=== PATIENT | male | born 1945 ===

== ENCOUNTER 2025-01-08 00:33 | Day surgery (SDC) | payer MEDICARE, SELFPAY ==
[2024-11-23 10:16] VITALS: BMI 27.1
--- NOTE | 2024-12-28 14:03 | PC.NURSE ---
Spoke with patient in regards to rescheduled procedure. Updated patient with new date and times, and answered all questions about prep. Patient denies any changes to allergies, medications, and health history. No questions at this time.
--- OUTSIDE RECORDS SUMMARY | 2025-01-08 00:39 | XMS_ITS | Referral Summary ---
Author Organization [facility] [address] Address [address] [place] [address] Care Team Providers Care Mold Sander Name Role Phone Alan Shine MD Primary Care Provider [phone] Encounters Date Type Department Care Team Description 12/28/2024 11:00 AM CDT Clinical Support [facility] [address] [place] [address] [place] [address] Type 2 diabetes mellitus without complication, with long-term current use of insulin (HCC) 12/21/2024 Telephone [id number] [facility] [place] [address] Juana Valera, RN 12/20/2024 Results Follow-Up [facility] [place] [address] Alan Shine MD 12/18/2024 3:30 PM BILL COLLECTOR Lab [facility] [place] [address] Type 2 diabetes mellitus without complication, with long-term current use of insulin (HCC); Primary hypertension; Mixed hyperlipidemia 12/18/2024 12:00 PM BILL COLLECTOR Office Visit [facility] [address] [facility] [address] [place] [address] Alan Shine MD Type 2 diabetes mellitus without complication, with long-term current use of insulin (HCC) (Primary Dx); Primary hypertension; Mixed hyperlipidemia from Last 3 Months Allergies Active Allergy Reactions Criticality Noted Date Comments Meperidine Other (See comments),Nausea only High 09/2022 unknown Medications aspirin 81 mg tablet Take 1 tablet (81 mg total) by mouth daily Active amitriptyline (ELAVIL) 25 mg tablet TAKE 1 TABLET (25 MG TOTAL) BY MOUTH NIGHTLY 30 tablet Active meclizine (ANTIVERT) 12.5 mg tablet Take 1 tablet (12.5 mg total) by mouth 3 (three) times a day as needed for dizziness 30 tablet Active Additional Information Patient not taking.Reported on 12/18/2024 insulin glargine (TOUJEO MAX) 300 unit/mL (3 mL) pen for injectionIndicati ons:Type 2 diabetes mellitus without complication, with long-term current use of insulin ([facility]) INJECT 28 UNITS DAILY DIRECTED 12 mL 2 Active Additional Information Patient taking differently: INJECT 32 UNITS DAILY DIRECTED, Reported on 12/18/[address] (VOLTAREN) 75 mg EC tablet Take 1 tablet (75 mg total) by mouth 2 (two) times a day Active fluorouraciL (EFUDEX) 5 % cream APPLY THIN LAYER TO FOREHEAD AREA TWICE DAILY X3-4 WEEKS (RED SCABBY REACTION WILL OCCUR) Active tretinoin (RETIN-A) 0.1 % cream APPLY THIN LAYER TO FACE AT BEDTIME Active ezetimibe (ZETIA) 10 mg tabletIndications :Mixed hyperlipidemia Take 1 tablet by mouth once daily 90 tablet 3 Active Jardiance 25 mg tablet Take 1 tablet by mouth once daily 90 tablet 3 Active hyoscyamine ER (LEVBID) 0.375 mg 12 hr tablet TAKE ONE TABLET BY MOUTH UP TO TWICE A DAY NEEDED 60 tablet 3 Active spironolactone (ALDACTONE) 25 mg tablet TAKE 1 TABLET (25 MG TOTAL) BY MOUTH DAILY 90 tablet 3 2024 Active blood glucose diagnostic (Contour Next Test Strips) strip USE ONE STRIP TO TEST BLOOD TWICE DAILY 200 strip 2 Active blood-glucose meter (Contour Meter) misc Use to test blood sugar twice a day E11.9 1 each Active lancets ([place] 1 Lancets) 26 gauge misc Use 2 times each day when testing blood glucose Dx: E11.9 200 each 3 Active carvediloL (COREG) 12.5 mg tablet TAKE 1 TABLET (12.5 MG TOTAL) BY MOUTH TWO (2) (TWO) TIMES A DAY WITH MEALS 60 tablet 11 Active valsartan (DIOVAN) 320 mg tablet TAKE ONE TABLET BY MOUTH DAILY 90 tablet Active amLODIPine (NORVASC) 5 mg tablet TAKE 1 TABLET (5 MG TOTAL) BY MOUTH DAILY [address] (PROTONIX) 40 mg EC tablet TAKE 1 TABLET (40 MG TOTAL) BY MOUTH DAILY 90 tablet Active montelukast (SINGULAIR) 10 mg tablet TAKE 1 TABLET (10 MG TOTAL) BY MOUTH NIGHTLY 90 tablet Active venlafaxine XR (EFFEXOR-XR) 75 mg 24 hr capsule TAKE 1 CAPSULE (75 MG TOTAL) BY MOUTH DAILY 90 capsule Active glipiZIDE XL (GLUCOTROL XL) 5 mg 24 hr tablet TAKE 1 TABLET (5 MG TOTAL) BY MOUTH DAILY 90 tablet Active tazarotene (TAZORAC) 0.05 % gel Apply topically nightly 30 g 024 2024 Active TechLITE Pen Needle 32 gauge x 532 needle USE TO INJECT INSULIN ONE TIMES PER DAY. 100 each 3 Active pen needle, diabetic (TechLITE Pen Needle) 32 gauge x 5/32 needle USE TO INJECT INSULIN 1 TIMES PER DAY. 100 each 024 2024 Discontinued Active Problems Problem Noted Date Diagnosed Date Diverticulitis 01/30/2024 Assessment & Plan (01/30/2024 12:58 PM CDT): Continue current rx. 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 Hypertension 05/05/2013 Overview (01/18/2017): Hypertension Assessment & Plan (09/17/2024 1:43 PM BILL COLLECTOR): Patient doing reasonably well continue present Rx Assessment & Plan (03/17/2024 10:21 AM CDT): Bp at target Assessment & Plan (01/30/2024 12:57 PM CDT): BP at target continue medications Hyperlipidemia 05/05/2013 Overview (01/18/2017): Hyperlipidemia Assessment & Plan (09/17/2024 1:43 PM BILL COLLECTOR): Stable doing well Assessment & Plan (03/17/2024 10:22 AM CDT): Lipid doing well Assessment & Plan (01/30/2024 12:57 PM CDT): Doing well continue present Rx. Immunizations Immunization Administration Dates Next Due Influenza, Quadrivalent, Spl it, Preservative Free, Intramuscular 10/04/2015 Influenza, Trivalent, High D ose, Split, Preservative Free, Intramuscular 10/30/2012 Pneumococcal Conjugate PCV 13 06/08/2016 Pneumococcal Conjugate Pcv20 03/15/2023 Tetanus toxoid, adsorbed 05/07/2013 ZOSTER Recombinant 03/15/2023 Social History Tobacco Use Types Packs/Day Years Used Date Smoking Tobacco: Former Smokeless Tobacco: Never Tobacco Cessation:Counseling Given: Not Answered Alcohol Use Standard Drinks/Week Comments Yes 0 (1 standard drink = 0.6 oz pur e alcohol) Sex and Gender Information Value Date Recorded Sex Assigned at Not on file Legal Sex Male 11:49 AM BILL COLLECTOR Gender Identity Male 09/10/2021 2:45 PM BILL COLLECTOR Sexual Orientation Straight 09/10/2021 2: 45 PM BILL COLLECTOR Last Filed Vital Signs Vital Sign Reading Time Taken Comments Blood Pressure 149/79 12/28/2024 11:18 AM CDT Pulse 80 12/28/2024 11:18 AM CDT Temperature 36.6 C (97.8 F) 01/30/2024 12:30 PM CDT Respiratory Rate 17 12/29/2020 2:50 PM CDT Oxygen Saturation 95% 12/29/2020 2:50 PM CDT Inhaled Oxygen Concentration - - Weight 93.9 kg (207 lb) 12/28/2024 11:18 AM CDT Height 182.9 cm (6') 12/28/2024 11:18 AM CDT Body Mass Index 28.07 12/28/2024 11:18 AM CDT Plan of Treatment Not on file Procedures Procedure Name Priority Date/Time Associated Diagnosis Comments EGFR Routine 12/18/2024 1:18 PM BILL COLLECTOR Type 2 diabetes mellitus without complication, with long-term current use of insulin (HCC) Primary hypertension Mixed hyperlipidemia DIFFERENTIAL AUTO Routine 12/18/2024 1:1 8 PM BILL COLLECTOR Type 2 diabetes mellitus without complication, with long-term current use of insulin (HCC) Primary hypertension Mixed hyperlipidemia COMPREHENSIVE METABOLIC PANEL Routine 12/18/2024 1:18 PM BILL COLLECTOR Type 2 diabetes mellitus without complication, with long-term current use of insulin (HCC) Primary hypertension Mixed hyperlipidemia TSH Routine 12/18/2024 1:18 PM BILL COLLECTOR Type 2 diabetes mellitus without complication, with long-term current use of insulin (HCC) Primary hypertension Mixed hyperlipidemia ALBUMIN CREATININE RATIO, URINE Routine 12/18/2024 1:18 PM BILL COLLECTOR Type 2 diabetes mellitus without complication, with long-term current use of insulin (HCC) Primary hypertension Mixed hyperlipidemia CBC WITH AUTO DIFFERENTIAL Routine 12/18/2024 1:18 PM BILL COLLECTOR Type 2 diabetes mellitus without complication, with long-term current use of insulin (HCC) Primary hypertension Mixed hyperlipidemia POCT HEMOGLOBIN A1C Routine 12/18/2024 1 2:50 PM BILL COLLECTOR Type 2 diabetes mellitus without complication, with long-term current use of insulin (HCC) POCT LIPID PANEL Routine 06/03/2024 11:4 7 AM CDT Mixed hyperlipidemia HEPATITIS PANEL, ACUTE Routine 03/20/2024 9:11 AM CDT Elevated liver enzymes STOOL DNA COLOGUARD Routine 05/06/2023 7:00 AM CDT Mixed hyperlipidemia Primary hypertension Type 2 diabetes mellitus without complication, with long-term current use of insulin (HCC) DIABETES EYE EXAM Routine 07/17/2019 DIABETES FOOT EXAM Routine 10/03/2017 from Last 3 Months or Most Recently Relevant to Health Maintenance Results * eGFR (12/18/2024 1:18 PM BILL COLLECTOR) eGFR >90 >=60 mL/min/1. 73 m2 Comment: Interpretive Data Reference Interval Normal >/= 90 mL/min/1.73m2 Mildly decreased* 60 - 89 mL/min/1.73m2 Mildly to moderately decreased 45 - 59 mL/min/1.73m2 Moderately to severely decreased 30 - 44 mL/min/1.73m2 Severely decreased 15 - 29 mL/min/1.73m2 Kidney Failure < 15 mL/min/1.73m2 *Relative to young adult level Estimated glomerular filtration rate is determined by the 2020 CKD-EPI equation recommended by the National Kidney Foundation (A Unifying Approach to GFR Estimation: Recommendations of the NKF-ASK Task Force on Reassessing the Inclusion of Race in Diagnosing Kidney Disease, JASN 2020). The CKD-EPI equation should not be used for patients with unstable renal function and has not been validated in children and those over 70. Current interpretive data was last reviewed 2021. Blood 12/18/2024 1:18 PM BILL COLLECTOR 12/18/2024 1:55 PM BILL COLLECTOR us Alan Shine MD LAB BLOOD ORDERABLES Final Re sult [facility] Department [place] [address] * (ABNORMAL) Differential, auto (12/18/2024 1:18 PM BILL COLLECTOR) Neutrophil abs 5.1 1.5 - 6.5 K/cumm Imm gran abs 0.0 0.0 - 0.1 K/cumm [facility] Lymphocyte abs 1.7 0.8 - 3.3 K/cumm [facility] Monocyte abs 0.9(H) 0.2 - 0.8 K/cumm [facility] Eosinophil abs 0.1 0.0 - 0.5 K/cumm [facility] Basophil abs 0.0 0.0 - 0.1 K/cumm [facility] Neutrophil pct 65.4 % [facility] Comment: Interpretive Data Percent cell count reference ranges are not reported, since discordance with absolute values may lead to misinterpretation of CBC data. Current Interpretive Data was last revised on 2018. Imm gran pct 0.4 % [facility] Comment: Interpretive Data Percent cell count reference ranges are not reported, since discordance with absolute values may lead to misinterpretation of CBC data. Current Interpretive Data was last revised on 2018. Lymphocyte pct 21.5 % [facility] Comment: Interpretive Data Percent cell count reference ranges are not reported, since discordance with absolute values may lead to misinterpretation of CBC data. Current Interpretive Data was last revised on 2018. Monocyte pct 10.9 % [facility] Comment: Interpretive Data Percent cell count reference ranges are not reported, since discordance with absolute values may lead to misinterpretation of CBC data. Current Interpretive Data was last revised on 2018. Eosinophil pct 1.3 % [facility] Comment: Interpretive Data Percent cell count reference ranges are not reported, since discordance with absolute values may lead to misinterpretation of CBC data. Current Interpretive Data was last revised on 2018. Basophil pct 0.5 % [facility] Comment: Interpretive Data Percent cell count reference ranges are not reported, since discordance with absolute values may lead to misinterpretation of CBC data. Current Interpretive Data was last revised on 2018. Blood 12/18/2024 1:18 PM BILL COLLECTOR 12/18/2024 1:55 PM BILL COLLECTOR us Alan Shine MD LAB BLOOD ORDERABLES Final Re sult [facility] Department [place] [address] * CBC with auto differential (12/18/2024 1:18 PM BILL COLLECTOR) WBC 7.8 3.8 - 9.9 K/cumm Hgb 16.4 13.0 - 17.5 g/dL [facility] Hct 47.3 38.9 - 50.3 % [facility] Plt 230 150 - 400 K/cumm [facility] MPV 9.9 9.1 - 12.3 fL [facility] RBC 5.26 4.30 - 5.80 M/cumm [facility] MCV 89.9 81.3 - 96.4 fL [facility] MCH 31.2 27.1 - 33.3 pg [facility] MCHC 34.7 32.3 - 35.7 g/dL [facility] RDW CV 13.3 11.1 - 14.9 % [facility] RDW SD 43.8 35.7 - 48.1 fL [facility] NRBC abs 0.00 0.00 - 0.01 K/cumm [facility] Blood 12/18/2024 1:18 PM BILL COLLECTOR 12/18/2024 1:55 PM BILL COLLECTOR Alan Shine MD LAB BLOOD ORDERABLES Final Re sult Performing Organization Address [facility] Co de Phone Number [facility] [place] [address] * (ABNORMAL) Albumin Creatinine Ratio, Urine (12/18/2024 1:18 PM BILL COLLECTOR) Albumin Ur 114.3 mg/L Comment: Interpretive Data No reference range established. Current interpretive data was last revised 2019. Creatinine Ur 53.6 mg/dL [facility] Comment: Interpretive Data No reference range established. Current interpretive data was last revised 2019. Albumin Creatinine Ratio, Ur 213(H) 1 - 29 mg/g [facility] Urine 12/18/2024 1:18 PM BILL COLLECTOR 12/18/2024 1:55 PM BILL COLLECTOR us Alan Shine MD LAB URINE ORDERABLES Final Re sult Performing Organization Address [facility] Co de Phone Number [facility] Department [place] [address] * TSH (12/18/2024 1:18 PM BILL COLLECTOR) Thyroid Stimulating Hormone 1.20 0.30 - 4.20 mcIUnit/mL Blood 12/18/2024 1:18 PM BILL COLLECTOR 12/18/2024 1:55 PM BILL COLLECTOR us Alan Shine MD LAB BLOOD ORDERABLES Final Re sult Performing Organization Address [facility] Co de Phone Number [facility] [place] [address] * (ABNORMAL) Comprehensive metabolic panel (12/18/2024 1:18 PM BILL COLLECTOR) Pathologist [facility] Sodium 139 135 - 145 mmol/L Potassium, pl 4.4 3.3 - 4.9 mmol/L [facility] Chloride 100 97 - 110 mmol/L [facility] CO2 26 22 - 32 mmol/L [facility] Anion gap 13 2 - 15 mmol/L [facility] BUN 26(H) 6 - 25 mg/dL [facility] Creatinine 0.71(L) 0.80 - 1.30 mg/dL [facility] Glucose 153 70 - 199 mg/dL [facility] Comment: Interpretive Data Fasting glucose >/= 126 mg/dl is diagnostic for diabetes. Fasting is defined as no caloric intake for at least 8 hours. Fasting glucose between 100 mg/dl to 125 mg/dl is diagnostic of prediabetes. In a patient with classic symptoms of hyperglycemia or hyperglycemic crisis, a random glucose >/= 200 mg/dl is diagnostic for diabetes. In the absence of unequivocal hyperglycemia, results should be confirmed by repeat testing. The classification and Diagnosis of Diabetes Diabetes Care 2021; 46: S19-S40. Current interpretive data was last revised 2022. Calcium 10.0 8.5 - 10.3 mg/dL [facility] Bilirubin, total 1.0 0.1 - 1.2 mg/dL [facility] Protein, pl 7.8 6.5 - 8.5 g/dL [facility] Albumin 4.7 3.5 - 5.0 g/dL [facility] Alk phos 62 40 - 130 Units/L [facility] ALT 14 7 - 55 Units/L [facility] AST 25 10 - 50 Units/L [facility] Blood 12/18/2024 1:18 PM BILL COLLECTOR 12/18/2024 1:55 PM BILL COLLECTOR us Alan Shine MD LAB BLOOD ORDERABLES Final Re sult [facility] Department [place] [address] * (ABNORMAL) POCT hemoglobin A1c (12/18/2024 12:50 PM BILL COLLECTOR) Pathologist [facility] Hemoglobin A1C, POC 9.1 4.0 - 5.6 % Capillary blood 12/18/2024 1 2:50 PM BILL COLLECTOR us Alan Shine MD POINT OF CARE TEST ORDERABLES Final Result * (ABNORMAL) POCT lipid panel (06/03/2024 11:47 AM CDT) Pathologist [facility] Cholesterol, POC 196 mg/dL HDL, POC <15 mg/dL Triglycerides, POC 290 mg/dL Capillary blood 06/03/2024 1 1:47 AM CDT us Alan Shine MD POINT OF CARE TEST ORDERABLES Final Result * Hepatitis panel, acute Blood (03/20/2024 9:11 AM CDT) Pathologist [facility] Hep A IgM NON-REACTI VE NON-REACT LANCE [facility] Comment: For additional information, please refer to http://Fonemesh/faq/GMM499 (This link is being provided for informational/ educational purposes only.) HepBsAg NON-REACTI VE NON-REACT LANCE [facility] Comment: For additional information, please refer to http://Fonemesh/faq/CQN000 (This link is being provided for informational/ educational purposes only.) Hep B core IgM NON-REACTI VE NON-REACT LANCE [facility] Comment: For additional information, please refer to http://Fonemesh/faq/PZN239 (This link is being provided for informational/ educational purposes only.) Hep C Ab NON-REACTI VE NON-REACT LANCE [facility] Comment: HCV antibody was non-reactive. There is no laboratory evidence of HCV infection. In most cases, no further action is required. However, if recent HCV exposure is suspected, a test for HCV RNA (test code 81241) is suggested. For additional information please refer to http://Fonemesh/faq/BWL92l5 (This link is being provided for informational/ educational purposes only.) Blood 03/20/2024 9:11 AM CDT 03/20/2024 9:12 AM CDT Narrative [facility] - 03/21/2024 9:37 PM CDT FASTING:NO FASTING: NO Alan Shine MD LAB MICROBIOLOGY - GENERAL OR DERABLES Final Result [facility] [address] [place] [address] * Stool DNA - Cologuard (05/06/2023 7:00 AM CDT) Stool DNA - Cologuard Negative Negative [facility] (CLIA #:[id number]) Comment: NEGATIVE TEST RESULT. A negative Cologuard result indicates a low likelihood that a colorectal cancer (CRC) or advanced adenoma (adenomatous polyps with more advanced pre-malignant features) is present. The chance that a person with a negative Cologuard test has a colorectal cancer is less than 1 in 1500 (negative predictive value >99.9%) or has an advanced adenoma is less than 5.3% (negative predictive value 94.7%). These data are based on a prospective cross-sectional study of 10,000 individuals at average risk for colorectal cancer who were screened with both Cologuard and colonoscopy. (Natalie Pineda et al, N Engl J Med 2014;370(14):8620-7285) The normal value (reference range) for this assay is negative. COLOGUARD RE-SCREENING RECOMMENDATION: Periodic colorectal cancer screening is an important part of preventive healthcare for asymptomatic individuals at average risk for colorectal cancer. Following a negative Cologuard result, the [place] Cancer Society and U.S. Multi-Society Task Force screening guidelines recommend a Cologuard re-screening interval of 3 years. References: [place] [employer] Society Guideline for Colorectal Cancer Screening: https://www.cancer.org/cancer/eitfu-urluqp-nyamom/qgvpdebxq-rfumvwyti-imykqzl/ac s-rec ommendations.html.; Angel DK, iTtus CR, Abelardo GARVEY, Colorectal Cancer Screening: Recommendations for Physicians and Patients from the U.S. Multi-Society Task Force on Colorectal Cancer Screening , Am J Gastroenterology 2017; 112:0781-2586. TEST DESCRIPTION: Composite algorithmic analysis of stool DNA-biomarkers with hemoglobin immunoassay. Quantitative values of individual biomarkers are not reportable and are not associated with individual biomarker result reference ranges. Cologuard is intended for colorectal cancer screening of adults of either sex, 45 years or older, who are at average-risk for colorectal cancer (CRC). Cologuard has been approved for use by the U.S. FDA. The performance of Cologuard was established in a cross sectional study of average-risk adults aged 50-84. Cologuard performance in patients ages 45 to 49 years was estimated by sub-group analysis of near-age groups. Colonoscopies performed for a positive result may find as the most clinically significant lesion: colorectal cancer [4.0%], advanced adenoma (including sessile serrated polyps greater than or equal to 1cm diameter) [20%] or non- advanced adenoma [31%]; or no colorectal neoplasia [45%]. These estimates are derived from a prospective cross-sectional screening study of 10,000 individuals at average risk for colorectal cancer who were screened with both Cologuard and colonoscopy. (Natalie Jefferson. et al, N Engl J Med 2014;370(14):5459-5918.) Cologuard may produce a false negative or false positive result (no colorectal cancer or precancerous polyp present at colonoscopy follow up). A negative Cologuard test result does not guarantee the absence of CRC or advanced adenoma (pre-cancer). The current Cologuard screening interval is every 3 years. ([place] [employer] Society and U.S. Multi-Society Task Force). Cologuard performance data in a 10,000 patient pivotal study using colonoscopy as the reference method can be accessed at the following location: [email or web address].Code Blue/results. Additional description of the Cologuard test process, warnings and precautions can be found at [email or web address].[email or web address]. Stool 05/06/2023 7:00 AM CDT 05/07/2023 8:44 PM CDT us Alan Shine MD LAB BODY FLUIDS AND STOOLS OR DERABLES Final Result [facility] (CLIA #:[id number]) [address] [place] [address] * DIABETES EYE EXAM (07/17/2019) Diabetic Eye Exam Normal Nicole Rodríguez MD HEALTH MAINTENANCE Final Resul t * DIABETES FOOT EXAM (10/03/2017) Diabetic Foot Exam Unknown Historical Provider HEALTH MAINTENANCE Final Result from Last 3 Months or Most Recently Relevant to Health Maintenance [place] [address] [facility] MEDIC[facility] MEDICARE [employer] MEDICARE SUPPLEMENT MEDICARE MEDICARE [facility] MEDICARE SUPPLEMENT Care Teams Mold Sander Relationship Specialty Start Date End Date Alan Shine MD [id number] [address] PCP - General Internal Medicine 07/12/20
--- OUTSIDE RECORDS SUMMARY | 2025-01-08 00:39 | XMS_ITS ---
Author Organization [facility] Address [address] [place] [address] Care Team Providers Care Warehouse Engineer Name Role Phone Cain Palumbo Unavailable [phone] REASON FOR VISIT [facility], on tirzepatide, struggling with appetite suppression , Taking probiotics, metamucil, and benefiber, Desired weight loss: 20 lbs, -3.2 lbs since the start last visit and -4.8 lbs since start medical weight loss regimen, No history MTC or MEN2 or pancreatitis, Concerned about future DM and OA Medications Medication SIG (Take, Route, Frequency, Duration) Notes Start Date End Date Status TOUJEO MAX SOLOSTAR 300 units/mL for 60 Days Active DICLOFENAC sodium 75 mg 1 tab(s) orally 2 times a day Active GLIPIZIDE 5 mg 1 tab(s) orally once a day Active EZETIMIBE 10 mg TAKE 1 TABLET BY NISA TH ONCE DAILY for 60 Days Active CARVEDILOL 12.5 mg for 30 Days Active JARDIANCE 25 mg for 90 Days Ac tive Encounters Encounter Location Date Provider Diagnosis [facility] [place] ([address]) [address] [id number] 02/27/2024 Cain Palumbo Morbid (severe) obesity due to excess calories E66.01 ; Abdominal distension (gaseous) R14.0 ; Chronic fatigue, unspecified R53.82 ; Other fatigue R53.83 and Other malaise R53.81 Assessments Encounter Date Diagnosis (ICD Code) Assessment Notes Treatment Notes Treatment Clinical Notes Section Notes 02/27/2024 Morbid (severe) obesity due to excess calories (ICD-10 - E66.01) 02/27/2024 Abdominal distension (gaseous) (ICD-10 - R14.0) Restart medical grade probiotics and take fiber as prescribed previously. To GI today to discuss new symptoms and advice on treatment if diverticulitis has recurred...always happens when I get stressed and I'm upset about my brother. 02/27/2024 Chronic fatigue, unspecified (ICD-10 - R53.82) 02/27/2024 Other fatigue (ICD-10 - R53.83) 02/27/2024 Other malaise (ICD-10 - R53.81) Plan Of Treatment Treatment Notes Assessment Notes Abdominal distension (gaseous) Restart m edical grade probiotics and take fiber as prescribed previously. To GI today to discuss new symptoms and advice on treatment if diverticulitis has recurred...always happens when I get stressed and I'm upset about my brother. Next Appt Details Follow Up: 1 Week, Reason: G LP-1 Agonist Administration Procedure Notes * Category Sub-Category Detail Notes [facility] tirzepatide Indication: weig ht loss Concentration: 10 mg/mL Volume Administered: 0.25 mL Dose Administered: 2.5 mg Route: SQ Location: Left abdomen Frequency: weekly Lot Number/Expiration: Medication Source: [employer] [employer] [facility] Adverse Reaction: None Progress Notes * Charles KAHNDOB:1945 (79 yo M)Acc No.[id number]:02/27/2024 Weight Loss Patient: Charles [facility] Provider: Iain Palumbo MD :1945 A ge:78 Y S ex:Male Date:02/27/2024 [facility] [place] [address] Subjective: * Chief Complaints: * 1 . [facility], on tirzepatide, struggling with appetite suppression . 2. Taking probiotics, metamucil, and benefiber. 3. Desired weight loss: 20 lbs, -3.2 lbs since the start last visit and -4.8 lbs since start medical weight loss regimen. 4. No history MTC or MEN2 or pancreatitis. 5. Concerned about future DM and OA. * Medical History: * Medications: T aking GLIPIZIDE 5 mg tablet 1 tab(s) orally once a day , Taking DICLOFENAC sodium 75 mg delayed release tablet 1 tab(s) orally 2 times a day , Taking TOUJEO MAX SOLOSTAR 300 units/mL solution , Taking JARDIANCE 25 mg tablet , Taking CARVEDILOL 12.5 mg tablet , Taking EZETIMIBE 10 mg tablet TAKE 1 TABLET BY MOUTH ONCE DAILY Objective: * Vitals: Assessment: * Assessment: 1. A bdominal distension (gaseous) - R14.0 (Primary) 2 . M orbid (severe) obesity due to excess calories - E66.01 3 . C hronic fatigue, unspecified - R53.82 4 . O ther fatigue - R53.83 5 . O ther malaise - R53.81? Plan: * Treatment: * Procedures: [facility]: tirzepatide I ndication w eight loss C oncentration 1 0 mg/mL V olume Administered 0 .25 mL D ose Administered 2 .5 mg R oute S Q L ocation L eft abdomen F requency w eekly L ot Number/Expiration 0 M edication Source H [facility] A dverse Reaction N one * Follow Up: 1 Week (Reason: GLP-1 Agonist Administration) * Billing Information: * Visit Code: * Procedure Codes: * Electronic signature of Viry Palumbo MD, FAAAAI on 01/08/2025 at 12:39 AM CDT Sign off status: Pending * Provider: Iain Palumbo MD Date: 0 02/27/2024 Generated for Ronai ng/Shen/eTransmitting on: 0 01/08/2025 12:39 AM CDT
--- OUTSIDE RECORDS SUMMARY | 2025-01-08 00:39 | XMS_ITS ---
Author Organization [facility] Address [address] [place] [address] Care Team Providers Care Seismometer Operator Name Role Phone LinwoodCain Unavailable [phone] REASON FOR VISIT [facility], [...] 25 mg for 90 Days Ac tive Vital Signs Height 70.1 in 02/20/2024 Weight 206.6 lbs 02/20/2024 BMI 29.56 kg/m2 02/20/2024 Encounters Encounter Location Date Provider Diagnosis [facility] [place] ([address]) [address] [place] [phone] 02/20/2024 Cain Palumbo Morbid (severe) obesity due to excess calories E66.01 ; Abdominal distension (gaseous) R14.0 ; Chronic fatigue, unspecified R53.82 ; Other fatigue R53.83 and Other malaise R53.81 Assessments Encounter Date Diagnosis (ICD Code) Assessment Notes Treatment Notes Treatment Clinical Notes Section Notes 02/20/2024 Morbid (severe) obesity due to excess calories (ICD-10 - E66.01) 02/20/2024 Abdominal distension (gaseous) (ICD-10 - R14.0) Restart medical grade probiotics and take fiber as prescribed previously. To GI today to discuss new symptoms and advice on treatment if diverticulitis has recurred...always happens when I get stressed and I'm upset about my brother. 02/20/2024 Chronic fatigue, unspecified (ICD-10 - R53.82) 02/20/2024 Other fatigue (ICD-10 - R53.83) 02/20/2024 Other malaise (ICD-10 - R53.81) Plan Of [...] abdomen Frequency: weekly Lot Number/Expiration: Medication Source: [employer] Adverse Reaction: None Progress Notes * Charles KAHNDOB:1945 (79 yo M)Acc No.[id number]:02/20/2024 Weight Loss Patient: Charles [facility] Provider: Iain Palumbo MD :1945 A ge:78 Y S ex:Male Date:02/20/2024 Address:[facility] [place] [facility] Subjective: * Chief Complaints: * 1 . [...] BY MOUTH ONCE DAILY Objective: * Vitals: H t: 70.1 in, Wt: 206.6 lbs, BMI:29.56Index. Assessment: * Assessment: 1. A bdominal distension [...] ot Number/Expiration 0 M edication Source H [facility] A dverse Reaction N one * Follow Up: 1 Week (Reason: GLP-1 Agonist Administration) * Billing Information: * Visit Code: * Procedure Codes: * Electronic signature of Viry Palumbo MD, FAAAAI on 01/08/2025 at 12:38 AM CDT Sign off status: Pending * Provider: Iain Palumbo MD Date: 0 02/20/2024 Generated for Ronai fernando/Shen/Sparklesmitting on: 0 01/08/2025 12:38 AM CDT
--- OUTSIDE RECORDS SUMMARY | 2025-01-08 00:39 | XMS_ITS | Clinical Summary ---
Author Organization [facility] Address [address] [place] [address] Care Team Providers Care Billet Heater Operator Name Role Phone Alan Shine MD Primary Care Provider [phone] Allergies Active Allergy Reactions Criticality Noted Date Comments Meperidine Other (See comments),Nausea only High 09/2022 unknown Medications aspirin 81 mg tablet Take 1 tablet (81 mg total) by mouth daily Active amitriptyline (ELAVIL) 25 mg tablet TAKE 1 TABLET (25 MG TOTAL) BY MOUTH NIGHTLY 30 tablet 023 Active meclizine (ANTIVERT) 12.5 mg tablet Take 1 tablet (12.5 mg total) by mouth 3 (three) times a day as needed for dizziness 30 tablet 024 Active Additional Information Patient not taking.Reported on 12/18/2024 insulin glargine (TOUJEO MAX) 300 unit/mL (3 mL) pen for injectionIndicati ons:Type 2 diabetes mellitus without complication, with long-term current use of insulin (HCC) INJECT 28 UNITS DAILY DIRECTED 12 mL 2 024 Active Additional Information Patient taking differently: INJECT [...] a day E11.9 1 each Active lancets (Monarch 1 Lancets) 26 gauge misc Use 2 [...] Active TechLITE Pen Needle 32 gauge x 5/32 needle USE TO INJECT INSULIN ONE TIMES PER DAY. 100 each 3 025 Active pen needle, diabetic (TechLITE Pen Needle) 32 gauge x 5/32 needle USE TO INJECT INSULIN 1 TIMES PER DAY. 100 each 3 024 2024 Discontinued Active Problems Problem Noted Date Diagnosed Date Diverticulitis 01/30/2024 Assessment & Plan (01/30/2024 12:58 PM CDT): Continue current rx. 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 Hypertension 05/05/2013 Overview (01/18/2017): Hypertension Assessment & Plan (09/17/2024 1:43 PM REELING MACHINE OPERATOR): Patient doing reasonably well continue present Rx Assessment & Plan (03/17/2024 10:21 AM CDT): Bp at target Assessment & Plan (01/30/2024 12:57 PM CDT): BP at target continue medications Hyperlipidemia 05/05/2013 Overview (01/18/2017): Hyperlipidemia Assessment & Plan (09/17/2024 1:43 PM REELING MACHINE OPERATOR): Stable doing well Assessment & Plan (03/17/2024 10:22 AM CDT): Lipid doing well Assessment & Plan (01/30/2024 12:57 PM CDT): Doing well continue present Rx. Encounters Date Type Department Care Team Description 12/28/2024 11:00 AM CDT Clinical Support [facility] [address] [place] [phone] Type 2 diabetes mellitus without complication, with long-term current use of insulin (HCC) 12/21/2024 Telephone [facility] [address] [place] [phone] Juana Valera RN 12/20/2024 Results Follow-Up [facility] [address] [place] [phone] Alan Shine MD 12/18/2024 3:30 PM REELING MACHINE OPERATOR Lab [facility] [address] [place] [phone] Type 2 diabetes mellitus without complication, with long-term current use of insulin (HCC); Primary hypertension; Mixed hyperlipidemia 12/18/2024 12:00 PM REELING MACHINE OPERATOR Office Visit [facility] [address] [place] [phone] Alan Shine MD Type 2 diabetes mellitus without complication, with long-term current use of insulin (HCC) (Primary Dx); Primary hypertension; Mixed hyperlipidemia from Last 3 Months Immunizations Immunization Administration Dates Next Due Influenza, Quadrivalent, Spl it, Preservative Free, Intramuscular 10/04/2015 Influenza, Trivalent, High D ose, Split, Preservative Free, Intramuscular 10/30/2012 Pneumococcal Conjugate PCV 13 06/08/2016 Pneumococcal Conjugate Pcv20 03/15/2023 Tetanus toxoid, adsorbed 05/07/2013 ZOSTER Recombinant 03/15/2023 Surgical History Surgery Date Site/Laterality Comments HERNIA REPAIR Hernia repair CHOLECYSTECTOMY Cholecystectomy [place] CHOLECYSTECTOMY Cholecystectomy - (Added by TW Conv) Medical History Medical History Date Comments Malignant neoplasm of prostate (HCC) Cancer, prostate Hypertension Hypertension Hyperlipidemia Hyperlipidemia Depression Depression Hx Other Medical Not Claustropho bic; Comments: GFC 07/06/2014 - Family History Medical History Relation Name Comments Diabetes Father Diabetes mellit us; Lung cancer Father Cancer -lung; Other Mother No history of D epression; Stroke Other Family history of cerebrovascular accident (CVA) - Relation: Grandmother (Added by TW Conv) Relation Name Status Comments Father Mother Other Social History Tobacco Use Types Packs/Day Years Used Date Smoking Tobacco: Former Smokeless Tobacco: Never Tobacco Cessation:Counseling Given: Not Answered Alcohol Use Standard Drinks/Week Comments Yes 0 (1 standard drink = 0.6 oz pur e alcohol) Sex and Gender Information Value Date Recorded Sex Assigned at Not on file Legal Sex Male 11:49 AM REELING MACHINE OPERATOR Gender Identity Male 09/10/2021 2:45 PM REELING MACHINE OPERATOR Sexual Orientation Straight 09/10/2021 2: 45 PM REELING MACHINE OPERATOR Obstetrics History Last Filed Vital Signs Vital Sign Reading [...] 12/28/2024 11:18 AM CDT Plan of Treatment Health Maintenance Due Date Last Done Comments Hepatitis B Screening 1963 Abdominal Aortic Aneurysm (A AA) Screen 2011 Well Visit 65+ 2011 DTaP/Tdap/Td Vaccine (1 - Tdap) 05/08/2013 3 Depression Screening 03/07/2019 03/07/2018 Fall Risk Assessment 05/13/2019 05/13/2018 Foot Exam 05/06/2020 05/06/2019, 09/14, 10/03/2017 Dilated Eye Exam 07/17/2020 07/17/2019, 04/2018, 09/02/2017 Zoster Vaccine (2 of 2) 05/10/2023 03/15/2023 Influenza Vaccine (#1) 2024 10/04/2015, 2012 Lipid Panel 06/03/2025 06/03/2024, 060 10/2022, 09/15/2021, Additional history exists Hemoglobin A1C 06/20/2025 12/18/2024, 02/2024, 06/03/2024, Additional history exists Albumin Creatinine Ratio, Urine 12/18/2025 , 03/17/2024 eGFR 12/18/2025 12/18/2024, 05/2024, 03/20/2024, Additional history exists Pneumococcal vaccine 65+ Completed 03/15/2023, 05/15 Colon Cancer Screening-DNA Stool Discontinued 05/06/20 23 Colon Cancer Screening-FIT Discontinued 05/06/2023 Colon Cancer Screening-FOBT Discontinued 05/06/2023 Colorectal Cancer Screening Discontinued Hepatitis C Screening Completed 03/20/2024, 024 Colon Cancer Screening-CT Colonography Discontinued Colon Cancer Screening-Colonoscopy Discontinued Colon Cancer Screening-Sigmoidoscopy Discontinued Procedures Procedure Name Priority Date/Time Associated Diagnosis Comments EGFR Routine 12/18/2024 1:18 PM REELING MACHINE OPERATOR Type 2 diabetes mellitus without complication, with long-term current use of insulin (HCC) Primary hypertension Mixed hyperlipidemia DIFFERENTIAL AUTO Routine 12/18/2024 1:1 8 PM REELING MACHINE OPERATOR Type 2 diabetes mellitus without complication, with long-term current use of insulin (HCC) Primary hypertension Mixed hyperlipidemia COMPREHENSIVE METABOLIC PANEL Routine 12/18/2024 1:18 PM REELING MACHINE OPERATOR Type 2 diabetes mellitus without complication, with long-term current use of insulin (HCC) Primary hypertension Mixed hyperlipidemia TSH Routine 12/18/2024 1:18 PM REELING MACHINE OPERATOR Type 2 diabetes mellitus without complication, with long-term current use of insulin (HCC) Primary hypertension Mixed hyperlipidemia ALBUMIN CREATININE RATIO, URINE Routine 12/18/2024 1:18 PM REELING MACHINE OPERATOR Type 2 diabetes mellitus without complication, with long-term current use of insulin (HCC) Primary hypertension Mixed hyperlipidemia CBC WITH AUTO DIFFERENTIAL Routine 12/18/2024 1:18 PM REELING MACHINE OPERATOR Type 2 diabetes mellitus without complication, with long-term current use of insulin (HCC) Primary hypertension Mixed hyperlipidemia POCT HEMOGLOBIN A1C Routine 12/18/2024 1 2:50 PM REELING MACHINE OPERATOR Type 2 diabetes mellitus without complication, with [...] Maintenance Results * eGFR (12/18/2024 1:18 PM REELING MACHINE OPERATOR) eGFR >90 >=60 mL/min/1. 73 m2 Comment: [...] last reviewed 2021. Blood 12/18/2024 1:18 PM REELING MACHINE OPERATOR 12/18/2024 1:55 PM REELING MACHINE OPERATOR us Alan Shine MD LAB BLOOD ORDERABLES Final Re sult [facility] [place] [address] * (ABNORMAL) Differential, auto (12/18/2024 1:18 PM REELING MACHINE OPERATOR) Neutrophil abs 5.1 1.5 - 6.5 K/cumm Imm gran abs 0.0 0.0 - 0.1 K/cumm [facility] Lymphocyte abs 1.7 0.8 - 3.3 K/cumm [facility] Monocyte abs 0.9(H) 0.2 - 0.8 K/cumm [facility] Eosinophil abs 0.1 0.0 - 0.5 K/cumm [facility] Basophil abs 0.0 0.0 - 0.1 K/cumm [facility] Neutrophil pct 65.4 % [facility] Comment: Interpretive Data Percent cell count reference ranges are not reported, since discordance with absolute values may lead to misinterpretation of CBC data. Current Interpretive Data was last revised on 2018. Imm gran pct 0.4 % [facility] Comment: Interpretive Data Percent cell count reference ranges are not reported, since discordance with absolute values may lead to misinterpretation of CBC data. Current Interpretive Data was last revised on 2018. Lymphocyte pct 21.5 % [facility] Comment: Interpretive Data Percent cell count reference ranges are not reported, since discordance with absolute values may lead to misinterpretation of CBC data. Current Interpretive Data was last revised on 2018. Monocyte pct 10.9 % [facility] Comment: Interpretive Data Percent cell count reference ranges are not reported, since discordance with absolute values may lead to misinterpretation of CBC data. Current Interpretive Data was last revised on 2018. Eosinophil pct 1.3 % [facility] Comment: Interpretive Data Percent cell count reference ranges are not reported, since discordance with absolute values may lead to misinterpretation of CBC data. Current Interpretive Data was last revised on 2018. Basophil pct 0.5 % [facility] Comment: Interpretive Data Percent cell count reference ranges are not reported, since discordance with absolute values may lead to misinterpretation of CBC data. Current Interpretive Data was last revised on 2018. Blood 12/18/2024 1:18 PM REELING MACHINE OPERATOR 12/18/2024 1:55 PM REELING MACHINE OPERATOR us Alan Shine MD LAB BLOOD ORDERABLES Final Re sult [facility] [place] [address] * CBC with auto differential (12/18/2024 1:18 PM REELING MACHINE OPERATOR) WBC 7.8 3.8 - 9.9 K/cumm Hgb 16.4 13.0 - 17.5 g/dL [facility] Hct 47.3 38.9 - 50.3 % [facility] Plt 230 150 - 400 K/cumm [facility] MPV 9.9 9.1 - 12.3 fL [facility] RBC 5.26 4.30 - 5.80 M/cumm [facility] MCV 89.9 81.3 - 96.4 fL [facility] MCH 31.2 27.1 - 33.3 pg [facility] MCHC 34.7 32.3 - 35.7 g/dL [facility] RDW CV 13.3 11.1 - 14.9 % [facility] RDW SD 43.8 35.7 - 48.1 fL [facility] NRBC abs 0.00 0.00 - 0.01 K/cumm [facility] Blood 12/18/2024 1:18 PM REELING MACHINE OPERATOR 12/18/2024 1:55 PM REELING MACHINE OPERATOR Alan Shine MD LAB BLOOD ORDERABLES Final Re sult Performing Organization Address [facility] Co de Phone Number [facility] [place] [address] * (ABNORMAL) Albumin Creatinine Ratio, Urine (12/18/2024 1:18 PM REELING MACHINE OPERATOR) Albumin Ur 114.3 mg/L Comment: Interpretive Data No reference range established. Current interpretive data was last revised 2019. Creatinine Ur 53.6 mg/dL [facility] Comment: Interpretive Data No reference range established. Current interpretive data was last revised 2019. Albumin Creatinine Ratio, Ur 213(H) 1 - 29 mg/g [facility] Urine 12/18/2024 1:18 PM REELING MACHINE OPERATOR 12/18/2024 1:55 PM REELING MACHINE OPERATOR Alan Shine MD LAB URINE ORDERABLES Final Re sult Performing Organization Address [facility] Co de Phone Number [facility] [place] [address] * TSH (12/18/2024 1:18 PM REELING MACHINE OPERATOR) Thyroid Stimulating Hormone 1.20 0.30 - 4.20 mcIUnit/mL Blood 12/18/2024 1:18 PM REELING MACHINE OPERATOR 12/18/2024 1:55 PM REELING MACHINE OPERATOR us Alan Shine MD LAB BLOOD ORDERABLES Final Re sult Performing Organization Address [facility] Co de Phone Number [facility] [place] [address] * (ABNORMAL) Comprehensive metabolic panel (12/18/2024 1:18 PM REELING MACHINE OPERATOR) Sodium 139 135 - 145 mmol/L Potassium, pl 4.4 3.3 - 4.9 mmol/L [facility] Chloride 100 97 - 110 mmol/L [facility] CO2 26 22 - 32 mmol/L [facility] Anion gap 13 2 - 15 mmol/L [facility] BUN 26(H) 6 - 25 mg/dL [facility] Creatinine 0.71(L) 0.80 - 1.30 mg/dL [facility] Glucose 153 70 - 199 mg/dL [facility] Comment: Interpretive Data Fasting glucose >/= 126 [...] 10.0 8.5 - 10.3 mg/dL [facility] Bilirubin, total 1.0 0.1 - 1.2 mg/dL [facility] Protein, pl 7.8 6.5 - 8.5 g/dL [facility] Albumin 4.7 3.5 - 5.0 g/dL [facility] Alk phos 62 40 - 130 Units/L [facility] ALT 14 7 - 55 Units/L [facility] AST 25 10 - 50 Units/L [facility] Blood 12/18/2024 1:18 PM REELING MACHINE OPERATOR 12/18/2024 1:55 PM REELING MACHINE OPERATOR us Alan Shine MD LAB BLOOD ORDERABLES Final Re sult [facility] [place] [address] * (ABNORMAL) POCT hemoglobin A1c (12/18/2024 12:50 PM REELING MACHINE OPERATOR) Pathologist [facility] Hemoglobin A1C, POC 9.1 4.0 - 5.6 % Capillary blood 12/18/2024 1 2:50 PM REELING MACHINE OPERATOR us Alan Shine MD POINT OF CARE TEST ORDERABLES Final Result * (ABNORMAL) POCT lipid panel (06/03/2024 11:47 AM CDT) [facility] Cholesterol, POC 196 mg/dL HDL, POC <15 mg/dL Triglycerides, POC 290 mg/dL Capillary blood 06/03/2024 1 1:47 AM CDT us Alan Shine MD POINT OF CARE TEST ORDERABLES Final Result * Hepatitis panel, acute Blood (03/20/2024 9:11 AM CDT) [facility] Hep A IgM NON-REACTI VE NON-REACT LANCE [facility] Comment: For additional information, please refer to http://[email or web address].SmartCloud/faq/PZX789 (This link is being provided for informational/ educational purposes only.) HepBsAg NON-REACTI VE NON-REACT LANCE [facility] Comment: For additional information, please refer to http://Kerecis.[employer]/faq/UOM503 (This link is being provided for informational/ educational purposes only.) Hep B core IgM NON-REACTI VE NON-REACT LANCE [facility] Comment: For additional information, please refer to http://Kerecis.[employer]/faq/EBD237 (This link is being provided for informational/ educational purposes only.) Hep C Ab NON-REACTI VE NON-REACT LANCE [facility] Comment: HCV antibody was non-reactive. There is no laboratory evidence of HCV infection. In most cases, no further action is required. However, if recent HCV exposure is suspected, a test for HCV RNA (test code 98682) is suggested. For additional information please refer to http://education.[employer]/faq/OFD29c3 (This link is being provided for informational/ educational purposes only.) Blood 03/20/2024 9:11 AM CDT 03/20/2024 9:12 AM CDT Narrative [facility] - 03/21/2024 9:37 PM CDT FASTING:NO FASTING: NO Alan Shine MD LAB MICROBIOLOGY - GENERAL OR DERABLES Final Result [facility] [address] [place] [address] * Stool DNA - Cologuard (05/06/2023 7:00 AM CDT) Stool DNA - Cologuard Negative Negative [facility] (CLIA #:[id number]) Comment: NEGATIVE TEST RESULT. A negative Cologuard [...] Pineda et al, N Engl J Med 2014;370(14):4851-4758) The normal value (reference range) for this assay is negative. COLOGUARD RE-SCREENING RECOMMENDATION: Periodic colorectal cancer screening is an important part of preventive healthcare for asymptomatic individuals at average risk for colorectal cancer. Following a negative Cologuard result, the [place] Cancer Society and U.S. Multi-Society Task Force screening guidelines recommend a Cologuard re-screening interval of 3 years. References: [place] [employer] Guideline for Colorectal Cancer Screening: https://www.cancer.org/cancer/kqton-dxasww-uavpkz/zfywolixb-omapyenhy-axwenhj/ac s-rec ommendations.html.; Angel PEREZ Titus SALAMANCA, Abelardo CharlesK, Colorectal Cancer Screening: Recommendations for Physicians and Patients from the U.S. Multi-Society Task Force on Colorectal Cancer Screening , Am J Gastroenterology 2017; 112:6959-8942. TEST DESCRIPTION: Composite algorithmic analysis of stool [...] screened with both Cologuard and colonoscopy. (Natalie Brooks al, N Engl J Med 2014;370(14):8056-8871.) Cologuard may produce a false negative or false positive result (no colorectal cancer or precancerous polyp present at colonoscopy follow up). A negative Cologuard test result does not guarantee the absence of CRC or advanced adenoma (pre-cancer). The current Cologuard screening interval is every 3 years. ([place] [employer] Society and U.S. Multi-Society Task Force). Cologuard performance data in a 10,000 patient pivotal study using colonoscopy as the reference method can be accessed at the following location: www.PublicVine.SmartCloud/results. Additional description of the Cologuard test process, warnings and precautions can be found at [email or web address] Jewellers[employer].com. Stool 05/06/2023 7:00 AM CDT 05/07/2023 8:44 PM CDT Alan Shine MD LAB BODY FLUIDS AND STOOLS OR DERABLES Final Result [facility] (CLIA #:[id number]) [address] [place] [address] * DIABETES EYE EXAM (07/17/2019) Diabetic Eye Exam Normal Nicole Rodríguez MD HEALTH MAINTENANCE Final Resul t * DIABETES FOOT EXAM (10/03/2017) Diabetic Foot Exam Unknown Historical Provider HEALTH MAINTENANCE Final Result from Last 3 Months or Most Recently Relevant to Health Maintenance Insurance [facility]IC[facility] MEDICARE [employer] MEDICARE SUPPLEMENT MEDICARE MEDICARE [facility] MEDICARE SUPPLEMENT Care Teams Billet Heater Operator Relationship Specialty Start Date End Date Alan Shine MD [address] [facility] [address] [place] [address] PCP - General Internal Medicine 07/12/20
--- OUTSIDE RECORDS SUMMARY | 2025-01-08 00:39 | XMS_ITS ---
Author Organization [facility] Address [address] [place] [address] Care Team Providers Care Resident Manager Name Role Phone ZZ-Migration, Provider Unavailable Unavailab le REASON FOR VISIT Multum To Medispan Conversion Encounter Medications Medication SIG (Take, Route, Frequency, Duration) Notes Start Date End Date Status Carvedilol 12.5 MG for 30 Days Active Jardiance 25 MG for 90 Days Ac tive Ezetimibe 10 MG TAKE 1 TABLET BY NISA ONCE DAILY for 60 Days Active Diclofenac Sodium 75 MG 1 tab(s) orally 2 times a day Active Toujeo Max SoloStar 300 UNIT/ML for 60 Days Active glipiZIDE 5 MG 1 tab(s) orally once a day Active Encounters Encounter Location Date Provider Diagnosis [address] [phone] 03/28/2024 Provider ZZ-Migration Plan Of Treatment No Information Progress Notes * Charles KAHNDOB:1945 (79 yo M)Acc No.[id number]:03/28/2024 Patient: Yasmin Charles DOMINGUEZ Provider: Iain Guidry :1945 A ge:78 Y S ex:Male Date:03/28/2024 Address:[address] [facility] Subjective: * Chief Complaints: * 1 . Multum To Medispan Conversion Encounter. * Medical History: * Medications: T aking glipiZIDE 5 MG Tablet 1 tab(s) orally once a day , Taking Diclofenac Sodium 75 MG Tablet Delayed Release 1 tab(s) orally 2 times a day , Taking Toujeo Max SoloStar 300 UNIT/ML Solution Pen-injector , Taking Jardiance 25 MG Tablet , Taking Carvedilol 12.5 MG Tablet , Taking Ezetimibe 10 MG Tablet TAKE 1 TABLET BY MOUTH ONCE DAILY Objective: * Vitals: Assessment: Plan: * Treatment: * Billing Information: * Visit Code: * Procedure Codes: * Electronic signature of Cece CALDERÓN-Migration on 01/08/2025 at 12:39 AM CDT Sign off status: Pending * Provider: Iain reyes Migration Date: 0 03/28/2024 Generated for Polina king/Shen/Marsha on: 01/08/2025 12:39 AM CDT
--- OUTSIDE RECORDS SUMMARY | 2025-01-08 00:40 | XMS_ITS | Patient Health Record ---
Author Organization [facility] Address [address] [place] [address] Care Team Providers Care Cisco Administrator Name Role Phone Cain Palumbo Unavailable [phone] [employer], Provider Unavailable Unavailab le Reason For Referral No Information Medications Medication SIG (Take, Route, Frequency, Duration) Notes Start Date End Date Status TOUJEO MAX SOLOSTAR 300 units/mL for 60 Days Active Carvedilol 12.5 MG for 30 Days Active DICLOFENAC sodium 75 mg 1 tab(s) orally 2 times a day Active Jardiance 25 MG for 90 Days Ac tive GLIPIZIDE 5 mg 1 tab(s) orally once a day Active Ezetimibe 10 MG TAKE 1 TABLET BY NISA TH ONCE DAILY for 60 Days Active Diclofenac Sodium 75 MG 1 tab(s) orally 2 times a day Active glipiZIDE 5 MG 1 tab(s) orally once a day Active EZETIMIBE 10 mg TAKE 1 TABLET BY NISA TH ONCE DAILY for 60 Days Active CARVEDILOL 12.5 mg for 30 Days Active JARDIANCE 25 mg for 90 Days Ac tive Toujeo Max SoloStar 300 UNIT/ML for 60 Days Active Problems Problem Type SNOMED Code ICD Code Onset Dates Problem Status W/U Status Risk Notes Problem Morbid obesity (disorder) (407176064) Morbid (severe) obesity due to excess calories (E66.01) Active confirmed Problem Obesity due to excess calories (797648249) Other obesity due to excess calories (E66.09) Active confirmed Problem Flatulence, eructation and gas pain (045627007) Abdominal distension (gaseous) (R14.0) Active confirmed Problem Malaise (063039176) Other malaise (R53.81) Active confirmed Problem Chronic fatigue syndrome (disorder) (95458643) Chronic fatigue, unspecified (R53.82) Active confirmed Problem Fatigue (30882758) Other fatigue (R53.83) Active confirmed Vital Signs Height 70.1 in 02/20/2024 Weight 206.6 lbs 02/20/2024 BMI 29.56 kg/m2 02/20/2024 Encounters Encounter Location Date Provider Diagnosis [facility] ([address]) [address] [place] [phone] 01/09/2024 Cain Linwood Morbid (severe) obesity due to excess calories E66.01 ; Chronic fatigue, unspecified R53.82 ; Other fatigue R53.83 and Other malaise R53.81 [facility] ([address]) [address] [place] [phone] 01/16/2024 Cain Linwood Morbid (severe) obesity due to excess calories E66.01 ; Chronic fatigue, unspecified R53.82 ; Other fatigue R53.83 and Other malaise R53.81 [facility] ([address]) [address] [place] [phone] 01/23/2024 Cain Palumbo Morbid (severe) obesity due to excess calories E66.01 ; Chronic fatigue, unspecified R53.82 ; Other fatigue R53.83 and Other malaise R53.81 [facility] ([address]) [address] [place] [phone] 02/13/2024 Cain Linwood Morbid (severe) obesity due to excess calories E66.01 ; Abdominal distension (gaseous) R14.0 ; Chronic fatigue, unspecified R53.82 ; Other fatigue R53.83 and Other malaise R53.81 [facility] ([address]) [address] [place] [phone] 02/20/2024 Cain Linwood Morbid (severe) obesity due to excess calories E66.01 ; Abdominal distension (gaseous) R14.0 ; Chronic fatigue, unspecified R53.82 ; Other fatigue R53.83 and Other malaise R53.81 [facility] ([address]) [address] [place] [phone] 01/30/2024 Cain Palumbo Morbid (severe) obesity due to excess calories E66.01 ; Abdominal distension (gaseous) R14.0 ; Chronic fatigue, unspecified R53.82 ; Other fatigue R53.83 and Other malaise R53.81 [facility] ([address]) [address] [place] [address] 02/06/2024 Cain Palumbo Morbid (severe) obesity due to excess calories E66.01 ; Abdominal distension (gaseous) R14.0 ; Chronic fatigue, unspecified R53.82 ; Other fatigue R53.83 and Other malaise R53.[address] [address] 03/28/2024 Provider [place] Assessments Encounter Date Diagnosis (ICD Code) Assessment [...] stressed and I'm upset about my brother. 02/13/2024 Morbid (severe) obesity due to excess calories (ICD-10 - E66.01) 02/13/2024 Abdominal distension (gaseous) (ICD-10 - R14.0) Restart medical grade probiotics and take fiber as prescribed previously. To GI today to discuss new symptoms and advice on treatment if diverticulitis has recurred...always happens when I get stressed and I'm upset about my brother. 02/06/2024 Morbid (severe) obesity due to excess calories (ICD-10 - E66.01) 02/06/2024 Abdominal distension (gaseous) (ICD-10 - R14.0) Restart medical grade probiotics and take fiber as prescribed previously. To GI today to discuss new symptoms and advice on treatment if diverticulitis has recurred...always happens when I get stressed and I'm upset about my brother. 01/16/2024 Morbid (severe) obesity due to excess calories (ICD-10 - E66.01) 01/16/2024 Chronic fatigue, unspecified (ICD-10 - R53.82) 01/30/2024 Morbid (severe) obesity due to excess calories (ICD-10 - E66.01) 01/30/2024 Abdominal distension (gaseous) (ICD-10 - R14.0) Restart medical grade probiotics and take fiber as prescribed previously. To GI today to discuss new symptoms and advice on treatment if diverticulitis has recurred...always happens when I get stressed and I'm upset about my brother. 01/23/2024 Morbid (severe) obesity due to excess calories (ICD-10 - E66.01) 01/23/2024 Chronic fatigue, unspecified (ICD-10 - R53.82) 01/09/2024 Morbid (severe) obesity due to excess calories (ICD-10 - E66.01) 01/09/2024 Chronic fatigue, unspecified (ICD-10 - R53.82) 01/09/2024 Other fatigue (ICD-10 - R53.83) 01/23/2024 Other fatigue (ICD-10 - R53.83) 01/30/2024 Chronic fatigue, unspecified (ICD-10 - R53.82) 01/16/2024 Other fatigue (ICD-10 - R53.83) 02/06/2024 Chronic fatigue, unspecified (ICD-10 - R53.82) 02/13/2024 Chronic fatigue, unspecified (ICD-10 - R53.82) 02/20/2024 Chronic fatigue, unspecified (ICD-10 - R53.82) 02/20/2024 Other fatigue (ICD-10 - R53.83) 02/13/2024 Other fatigue (ICD-10 - R53.83) 02/06/2024 Other fatigue (ICD-10 - R53.83) 01/16/2024 Other malaise (ICD-10 - R53.81) 01/30/2024 Other fatigue (ICD-10 - R53.83) 01/23/2024 Other malaise (ICD-10 - R53.81) 01/09/2024 Other malaise (ICD-10 - R53.81) 01/30/2024 Other malaise (ICD-10 - R53.81) 02/06/2024 Other malaise (ICD-10 - R53.81) 02/13/2024 Other malaise (ICD-10 - R53.81) 02/20/2024 Other malaise (ICD-10 - R53.81) Plan Of Treatment No Information
--- OUTSIDE RECORDS SUMMARY | 2025-01-08 00:40 | XMS_ITS | CONTINUITY OF CARE DOCUMENT ---
Author Name reny oglesby Address Unknown Organization [facility] Address [address] [place] [address] Phone [phone] Care Team Providers Care Customer Specialist Name Role Phone Tevin CHAO, Kvng Unavailable RAFIQ ALVAREZ MD Unavailable [phone] DAGOBERTO LIN MD Unavailable [phone] PROBLEMS Condition Status Date Provider Notes HYPERTENSION active Kvng Abarca MD Pre op cardiovascular exam active Kvng de la rosa MD Cardiology examination active Kvng Abarca MD ENCOUNTERS Date Type Provider Location Encounter Diag nosis - In-person encounter Office Visit Kvng Abarca MD [facility] Cardiology examinationPre op cardiovascular examHYPERTENSION VITAL SIGNS Date Observation Value Provider Body Mass Index (Ratio) 28.75 kg/m2 Vita Abarca MD blood pressure, cuff size large Ke annika Schultz blood pressure, diastolic 84 mm[Hg] Ke sanketi Antoine blood pressure, systolic 176 mm[Hg] Andrew Schultz oxygen saturation, oximetry 96 % Yue Schultz respiratory rate E&M 16 /min Yue smith pulse rate 84 /min Yue galvin weight E&M 212 [lb_av] Yue Mcmillan lder height E&M 72 [in_i] Yue Deyanira lder ALLERGIES Allergy Name Onset Date Reaction Criticality Status DEMEROL High Criticality active HISTORY OF MEDICATION USE Medication Status Instructions Dates Provider Indications Com ments Trulicity 1.5 mg/0.5 mL pen injector active Yue Antoine Jardiance 10 mg tablet active Yue Antoine ezetimibe 10 mg tablet active Yue Antoine diclofenac sodium 75 mg tablet,delayed release (DR/EC) active Yue Antoine pantoprazole 40 mg tablet,delayed release (DR/EC) active Yue Antoine amitriptyline 25 mg tablet active Yue Antoine valsartan 320 mg tablet active Yue Antoine amlodipine 5 mg tablet active Yue Antoine metoprolol succinate 50 mg tablet extended release 24 hr active Yue Antoine glipizide 5 mg tablet extended release 24hr active Yue Antoine venlafaxine 75 mg capsule,extended release 24hr active Yue Schultz SOCIAL HISTORY Date Observation Value Provider drug use no Kvng Abarca MD alcohol use, average drinks per day social Kvng Abarca MD alcohol use yes Kvng Abarca MD social history E&M S moking History: P garrett has never smoked. Kvng Abarca MD social history reviewed E&M revi ewed - no changes required Kvng Abarca MD smoking status Never smoker Yue dalal INSURANCE PROVIDERS Payer name Policy type / Coverage type Belden red libertarian ID [facility] [id number] [place] Medicare [id number] ADVANCE DIRECTIVES Name Date DISCUSSED - NO DECISION MADE TREATMENT PLAN Date Name Performer [id number],S, B P today: 176/84 H as white coat htn Kvng Abarca MD [id number],C,H e has no indication for stress testing as he has no chest symptoms or valvular or rhythym issues. he can proceed with surgery for his left total knee replacement Kvng Abarca MD Cardiology: B P today: 176/84 H as white coat htn Kvng Abarca MD Cardiology:He has no indication for stress testing as he has no chest symptoms or valvular or rhythym issues. 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
[2025-01-08 10:12] VITALS: BP 173/80; PULSE 75; RESP 20; TEMP 35.9; O2SAT 95
[2025-01-08] MEDS: LACTATED RINGERS 1,000 ML 150 ML IV CONT (10:26)
[2025-01-08 10:28] LABS: Glucose Point of Care 154 mg/dl (65-105)
--- NOTE | 2025-01-08 10:48 | P.PNAN_ITS ---
Anes - Initial Pre Proc Eval Procedure: Operation Date: 01/08/25 11:00 Proposed Procedures p Screening Colonoscopy - Landon Nicholson MD Date/Time: 01/08/25 10:48 Surgeon: Landon Nicholson MD Pre Op Diagnosis: screening malignant neoplasm of colon Patient Data Age: 79 Gender: M Height: 1.83 m Weight: 90 kg Last Vital Signs Temp 35.9 C L 01/08/25 10:12 Pulse 75 01/08/25 10:12 Resp 20 01/08/25 10:12 BP 173/80 H 01/08/25 10:12 Pulse Ox 95 01/08/25 10:12 O2 Del Method Room Air 01/08/25 10:12 Allergies Allergy/AdvReac Type Severity Reaction Status Date / Time meperidine (From Demerol) AdvReac Mild Nausea and Verified 01/08/25 10:10 Vomiting Home Medications ?Medication ?Instructions ?Recorded ?Confirmed ?Type amitriptyline 25 mg tablet 25 mg PO DAILY 11/23/24 01/08/25 History amlodipine 5 mg tablet 10 mg PO DAILY 11/23/24 01/08/25 History carvedilol 12.5 mg tablet 12.5 mg PO BID 11/23/24 01/08/25 History empagliflozin 25 mg tablet 25 mg PO DAILY 11/23/24 01/08/25 History (Jardiance) ezetimibe 10 mg tablet 10 mg PO DAILY 11/23/24 01/08/25 History glipizide 5 mg tablet, extended 5 mg PO DAILY 11/23/24 01/08/25 History release 24 hr insulin glargine U-300 conc 300 30 unit subcut DAILY 11/23/24 01/08/25 History unit/mL (3 mL) subcutaneous pen (Toujeo Max U-300 SoloStar) montelukast 10 mg tablet 10 mg PO DAILY 11/23/24 01/08/25 History pantoprazole 40 mg tablet,delayed 40 mg PO DAILY 11/23/24 01/08/25 History release spironolactone 25 mg tablet 25 mg PO DAILY 11/23/24 01/08/25 History valsartan 320 mg tablet 320 mg PO DAILY 11/23/24 01/08/25 History venlafaxine 75 mg capsule,extended 37.5 mg PO DAILY 11/23/24 01/08/25 History release 24 hr Laboratory Tests 01/08/25 10:17 POC Capillary Glucose 154 H mg/dl (65-105) Patient hx anesthesia problems: none Family hx anesthesia problems: none Results Review: All pre-operative results and documents have been reviewed as part of the pre- operative evaluation. [facility] Past Medical History Medical History (Updated 01/08/25 @ 10:49 by Ky Meraz MD) Depression Diabetes HTN (hypertension) Prostate CA Surgical History Surgical History (Updated 01/08/25 @ 10:49 by Ky Meraz MD) H/O prostatectomy Social History Social History Smoking status: Never smoker Alcohol intake: never Substance use: never Substance use type: does not use Living arrangements: with family Spiritual care concerns: No Anes - Eval Final PreProcedure Day of Procedure 01/08/25 10:48 Patient weight: overweight Heart: regular rate and rhythm Lungs: clear to auscultation Airway: Mallampati scale class II Neurological: alert and oriented Last oral intake: >/= 8 hours ASA classification: III Emergent: no Anesthetic plan: proceed Anesthesia type and monitoring: general GIVS and standard monitoring Results Review: All pre-operative results and documents have been reviewed as part of the pre- operative evaluation. Informed Consent: The patient's anesthetic plan and its attendant risks and benefits were discussed with the patient/family/POA. Questions were solicited and answers provided to the satisfaction of the patient/family/POA.
--- NOTE | 2025-01-08 11:11 | PM.IMHP ---
H&P: HPI History of Present Illness Date/Time: 01/08/25 11:11 Chief Complaint: History of colon polyps Narrative: The patient has a history of colonic polyps, the last colonoscopy was more than 5 years ago. Review of Systems Review of Systems: All systems reviewed & are unremarkable except as noted in HPI and below PMFSH Past Medical History Medical History (Updated 01/08/25 @ 11:12 by Landon Nicholson MD) Depression Diabetes HTN (hypertension) Prostate CA Surgical History Surgical History (Updated 01/08/25 @ 10:49 by Ky Meraz MD) H/O prostatectomy Social History Social History Smoking status: Never smoker Alcohol intake: never Substance use: never Substance use type: does not use Living arrangements: with family Spiritual care concerns: No Meds Home Medications and Allergies Home Medications ?Medication ?Instructions ?Recorded ?Confirmed ?Type amitriptyline 25 mg tablet 25 mg PO DAILY 11/23/24 01/08/25 History amlodipine 5 mg tablet 10 mg PO DAILY 11/23/24 01/08/25 History carvedilol 12.5 mg tablet 12.5 mg PO BID 11/23/24 01/08/25 History empagliflozin 25 mg tablet 25 mg PO DAILY 11/23/24 01/08/25 History (Jardiance) ezetimibe 10 mg tablet 10 mg PO DAILY 11/23/24 01/08/25 History glipizide 5 mg tablet, extended 5 mg PO DAILY 11/23/24 01/08/25 History release 24 hr insulin glargine U-300 conc 300 30 unit subcut DAILY 11/23/24 01/08/25 History unit/mL (3 mL) subcutaneous pen (Toujeo Max U-300 SoloStar) montelukast 10 mg tablet 10 mg PO DAILY 11/23/24 01/08/25 History pantoprazole 40 mg tablet,delayed 40 mg PO DAILY 11/23/24 01/08/25 History release spironolactone 25 mg tablet 25 mg PO DAILY 11/23/24 01/08/25 History valsartan 320 mg tablet 320 mg PO DAILY 11/23/24 01/08/25 History venlafaxine 75 mg capsule,extended 37.5 mg PO DAILY 11/23/24 01/08/25 History release 24 hr Allergies Allergy/AdvReac Type Severity Reaction Status Date / Time meperidine (From Demerol) AdvReac Mild Nausea and Verified 01/08/25 10:10 Vomiting Vital Signs Vital Signs - 24 hr 01/08/25 10:12 Temperature 96.6 F L Pulse Rate 75 Respiratory Rate 20 Blood Pressure 173/80 H Pulse Oximetry 95 Oxygen Delivery Room Air Exam Const: General: cooperative and healthy appearing Resp: Effort & Inspection: normal respiratory effort and able to speak in complete sentences Auscultation: clear to auscultation bilaterally Cardio: Rate: regular rate Rhythm: regular rhythm GI: Inspection: normal to inspection GI Palp: No No hepatosplenomegaly present Auscultation: normal bowel sounds Rectal Exam: deferred Skin: General skin exam: normal color Psych: Appearance: grossly normal Mental Status: mental status grossly normal Assessment and Plan Assessment and plan (1) History of colonic polyps: Code(s): Z86.0100 - Personal history of colon polyps, unspecified Status: Acute Assessment and Plan: The patient is deemed a good candidate for the procedure. Consent signed. Will proceed.
[2025-01-08 11:37] VITALS: BP 144/70; PULSE 68; RESP 20; O2SAT 98
[2025-01-08 11:47] VITALS: BP 146/71; PULSE 66; RESP 18; O2SAT 100
[2025-01-08 11:55] LABS: Glucose Point of Care 132 mg/dl (65-105)
[2025-01-08 11:57] VITALS: BP 162/85; PULSE 68; RESP 18; O2SAT 99
== END 2025-01-08 12:10 | disposition home or self-care (01) ==
PROVIDERS: PCP Internal Medicine; Referring Provider Internal Medicine; Visit Provider Internal Medicine Gastroenterology
PROC: 0DJD8ZZ Inspection of Lower Intestinal Tract, Via Natural or Artificial Opening Endoscopic (ICD-10-PCS; CPT 45378; principal; 2025-01-08 11:00)
DX: Z12.11 Encounter for screening for malignant neoplasm of colon (principal); K63.5 Polyp of colon; K51.40 Inflammatory polyps of colon without complications; K57.30 Diverticulosis of large intestine without perforation or abscess without bleeding; I10 Essential (primary) hypertension; E11.9 Type 2 diabetes mellitus without complications; F32.A Depression, unspecified; Z79.84 Long term (current) use of oral hypoglycemic drugs; Z79.4 Long term (current) use of insulin; Z98.890 Other specified postprocedural states; Z85.46 Personal history of malignant neoplasm of prostate
CPT/HCPCS: 45385; 82948; 88305; J2003; J2371; J2704; J7120